=== PATIENT | female | born 1965 | race Caucasian/White ===

== ENCOUNTER 2018-08-01 09:35 | Emergency (ER) | payer MEDICARE, OTHER ==
[~2018-08-01] VITALS: Ht 157.5 cm; Wt 86.2 kg
[~2018-08-01 09:35] MED LIST: ACETAMINOPHEN325 M1 PO; AMBIEN 10 MG TA10 MG PO; ASPIRIN EC81 M1 PO; BACLOFEN 10MG T10 MG PO; CARBAMAZEPINE100 MG PO; COLACE 100 MG100 MG PO; ERGOCALCIF50000 UNIT PO; FLUZONE 2045 MCG/011; HYDROCODONE-APA1 TA1 PO; IBUPROFEN200 M2 PO; LYRICA300 MG PO; MEDROLDOSEPACK PO; MOM PO; NOHOMEMEDICATIONS; OXYCODONE APAP PO; PNEUMOVAX25 MCG/0.5; PREDNISONE 20 M20 M1 PO; PREDNISONE 20 M20 MG PO; RANITIDINE 150150 M1 PO; ZOFRAN ODT4 MG PO
[2018-08-01] MEDS ORDERED: SERTRALINE HCL50 MG PO (09:51)
[2018-08-01] MEDS ORDERED: AUBAGIO14 MG PO (09:51)
[2018-08-01] MEDS ORDERED: IBUPROFEN 800800 M1 PO (11:05)
[2018-08-01] MEDS ORDERED: ZANAFLEX4 MG PO (11:05)
[2018-08-01] MEDS ORDERED: MEDROLDOSEPACK PO (11:05)
[2018-08-01 11:17] VITALS: BP 148/80
== END 2018-08-01 11:17 | disposition home or self-care (01) ==
LOC: M.ERS 09:35
DX: M54.31 Sciatica, right side (principal); M62.838 Other muscle spasm; G35 Multiple sclerosis; Z88.1 Allergy status to other antibiotic agents; Z88.2 Allergy status to sulfonamides; Z88.8 Allergy status to other drugs, medicaments and biological substances